=== PATIENT | male | born 1955 | race Caucasian/White ===

== ENCOUNTER 2019-10-03 08:08 | Inpatient (IN) | payer OTHER ==
[2019-10-01 11:29] LABS: BASOPHILS # (AUTO) 0.1 X10'3 (0-0.2); BASOPHILS % (AUTO) 0.8 % (0-1); EOSINOPHILS # (AUTO) 0.5 X10'3 (0-0.9); EOSINOPHILS % (AUTO) 4.3 % (0-6); LYMPHOCYTES # (AUTO) 1.6 X10'3 (1.1-4.8); LYMPHOCYTES % (AUTO) 14.4 % (21-51); MEAN CORPUSCULAR HEMOGLOBIN 31.8 PG (27.0-31.0); MEAN CORPUSCULAR VOLUME 93.4 FL (78-98); MEAN PLATELET VOLUME 8.1 FL (7.4-10.4); MONOCYTES # (AUTO) 0.8 X10'3 (0-0.9); MONOCYTES % (AUTO) 7.4 % (2-12); NEUTROPHILS # (AUTO) 8.1 X10'3 (1.8-7.7); NEUTROPHILS % (AUTO) 73.1 % (42-75); PRE OP HEMATOCRIT 46.6 % (42.0-52.0); PRE OP HEMOGLOBIN 15.9 g/dL (14.0-17.9); PRE OP PLATELET COUNT 330 X10'3 (140-440); RED BLOOD COUNT 4.99 X10'6 (4.70-6.10); RED CELL DISTRIBUTION WIDTH 13.6 % (11.5-14.5)
[2019-10-01 11:33] LABS: CLARITY,URINE SLIGHTLY CLOUDY (Clear); COLOR,URINE YELLOW (Yellow); GLUCOSE, URINE NEGATIVE (Neg); KETONES,URINE NEGATIVE (Neg); LEUKOCYTE ESTERASE ,URINE TRACE (Neg); NITRITES, URINE NEGATIVE (Neg); OCCULT BLOOD,URINE MODERATE (Neg); PROTEIN,URINE NEGATIVE (Neg); UROBILINOGEN,URINE 0.2 E.U/dL (0.2-1.0)
[2019-10-01 11:39] LABS: UA COLLECTION TYPE CLN CATCH MIDSTREAM
[2019-10-01 11:40] LABS: MUCUS STRANDS MANY /LPF (Neg); SQUAMOUS EPITHELIAL CELL,UR FEW /LPF (FEW); TRANSITIONAL EPI CELLS,URINE FEW /HPF
[2019-10-01 11:41] LABS: BACTERIA,URINE NONE SEEN /HPF (Neg); RENAL CELLS, URINE FEW /HPF; WBC,URINE 0-4 /HPF (0-4)
[2019-10-01 11:45] LABS: PRE OP INR 0.9 INR
[2019-10-01 11:50] LABS: ALBUMIN 3.8 G/DL (3.4-5.0); ALBUMIN/GLOBULIN RATIO 0.9 (1.1-1.5); ALKALINE PHOSPHATASE 94 IU/L (46-116); BLOOD UREA NITROGEN 10 MG/DL (7-18); BUN/CREATININE RATIO 14.3 (5.4-32.0); CALCIUM 9.3 MG/DL (8.5-10.1); CHLORIDE 104 MMOL/L (99-107); PRE OP ALT 39 U/L (30-65); PRE OP ANION GAP 13 (8-16); PRE OP AST 26 U/L (10-37); PRE OP BILIRUB, TOTAL 0.7 MG/DL (0.0-1.0); PRE OP GLUCOSE 95 MG/DL (70-104); PRE OP POTASSIUM 4.2 MMOL/L (3.4-5.1); PRE OP SODIUM 139 MMOL/L (135-145); TOTAL CARBON DIOXIDE 22.2 MMOL/L (24-32); TOTAL PROTEIN 8.2 G/DL (6.4-8.2); eGFR > 90 ML/MIN
[~2019-10-03] VITALS: Ht 172.7 cm; Wt 78.4 kg
[2019-10-03] VITALS (21 sets, daily range): BP systolic 95–170; BP diastolic 53–86
[~2019-10-03 08:08] MED LIST: ASPI-12 PO; FLO0.4C PO; LISI-604 PO; albuterol 2.5 MG/3 ML nebule NEB ONE; cefazolin/dext.iso 2gm/50ml 50 ML IV ONE; famotidine 20mg tablet PO ONE; nitroPRUSSIDE in NS 100 ML IV PRN; phenylephrine inj 20 MG in normal saline 250ml IV soln 250 ML IV PRN; ringers solution, lacted 1,000 ML IV ONE
--- NOTE | 2019-10-03 11:00 | NUR ---
PT FRUSTRATED THAT HE HAS NOT BEEN ABLE TO EAT. I EXPLAINED TO PT THAT IF HE ATE HE WOULD NOT BE ABLE TO HAVE SURGERY TODAY. HE STATED THAT IS WHAT HE WANTED "FOOD OVER SURGERY". DR LUNA INTO SPEAK WITH PT AT LENGTH ABOUT NEED FOR SURGERY AND RISKS OF CX SURGERY TODAY PT VERY ADAMANT ABOUT NOT WANTING SURGERY AND WANTING TO EAT. DR. LUNA SAID WE WOULD RESPECT HIS WISHES AND LET HIM GO HOME. FOOD ORDERED FROM [employer] FOR PT WELL. FRIEND CALLED FOR RIDE HOME.
--- NOTE | 2019-10-03 11:15 | NUR ---
IV DC'D FOR DC HOME. PT NOW FEELING REMORSEFUL ABOUT CX SURGERY AND WANTS TO KNOW IF HE CAN STILL HAVE IT TODAY. CALLED OR CHARGE NURSE. SURGERY BACK ON. PT AND FRIEND INFORMED
[2019-10-03] MEDS ORDERED: ceFAZolin 1000mg inj ONE (11:39)
[2019-10-03] MEDS ORDERED: heparin 10,000 units/1 ML INJ ONE (11:39)
--- NOTE | 2019-10-03 11:50 | NUR ---
IV RESTARTED. CARTON STAMPER HERE TO PLACE LEADS
[2019-10-03] MEDS ORDERED: LIDOcaine 1% (10mg/ml) 2ml vial ONE (12:15)
[2019-10-03] MEDS ORDERED: midazolam 2 mg/2 ml injection ONE ×2 (12:35→12:56)
[2019-10-03] MEDS ORDERED: fentaNYL /PF 50mcg/ml 5ml ampule ONE (12:57)
[2019-10-03] MEDS ORDERED: propofol inj 20 ML IV ONE (13:00)
[2019-10-03] MEDS ORDERED: ringers solution, lacted 1,000 ML IV SCH (13:51)
[2019-10-03] MEDS ORDERED: ondansetron/PF 4mg/2ml inj IV PRN ×3 (13:55→15:20)
[2019-10-03] MEDS ORDERED: meperidine/PF 25mg/ml syringe IV PRN ×3 (13:55)
[2019-10-03] MEDS ORDERED: morphine 4 MG/ML inj SYRINge IV PRN ×2 (13:55)
[2019-10-03] MEDS ORDERED: proCHLORperazine 10 MG/2 ml inj IV PRN (13:55)
[2019-10-03] MEDS ORDERED: rocuronium 10mg/ml inj IV ONE (14:09)
[2019-10-03] MEDS ORDERED: neostigmine methylsulfate 1 MG/ML 10ml vial ONE (14:09)
[2019-10-03] MEDS ORDERED: heparin 1,000unit/ml 10ml vial 10 ML ONE (14:09)
[2019-10-03] MEDS ORDERED: glycopyrrolate 0.2mg/ml inj ONE (14:09)
[2019-10-03] MEDS ORDERED: metoprolol tartrate 1mg/ml inj IV ONE (14:09)
--- NOTE | 2019-10-03 14:21 | NUR ---
Received from OR via BED, accompanied by Anesthesiologist DR HOLDEN and report given by Anesthesiologist. PT DROWSY, DENIES PAIN, LEFT NECK W/JESUS TO BULB SUCTION W/S/S STEVE PIERRE COVERING INCISION CDI, NO SWELLING NOTED. Addendum: 10/03/19 at 1456 by Frances Oconnor RN Amended: Links added.
[2019-10-03] MEDS ORDERED: HYDROmorphone inj. 0.5 MG/0.5 ML DISP.SYRIN IV PRN (15:20)
--- NOTE | 2019-10-03 15:41 | NUR ---
Report called to receiving nurse. Transferred via BED ON , 2 BAGS OF Belongings, 1 DUFFLE BAG AND 1 CANE SENT W/PT TO ROOM 2045, RECEIVING RN AT BEDSIDE TO RECEIVE PT. PT REMAINS NON-COMPLIANT W/CARE. Special Issues communicated to receiving nurse. YES. Addendum: 10/03/19 at 1553 by Frances Oconnor RN Amended: Links added.
[2019-10-03] MEDS ORDERED: phenylephrine inj 20 MG in normal saline 250ml IV soln 250 ML IV PRN (15:55)
--- NOTE | 2019-10-03 18:30 | NUR ---
Patient in room ICU 2045. I have received report from Rose GASTON, and had the opportunity to ask questions and assume patient care.
[2019-10-03] MEDS: HYDROcodone/acetaminophen 10/325mg tab PO PRN ×2 (18:50→23:47)
--- NOTE | 2019-10-03 20:15 | NUR ---
PT sitting up in bed with no s/s of distress noted at this time. PT on RA and tolerating well, O2 sat >94%. A-Line to RT radial, zeroed and transduced to pressure tubing. JESUS to LT neck with minimal serous output noted in bulb or tubing. Drsg to LT neck is CDI. PT has been grumpy, extremely argumentative and has complained constantly despite every effort and attempt by nursing to provide every request by PT. PT dinner tray did not come up at "normal" time, multiple calls with no answer and Fax sent. PT offered a snack until his tray arrived and after given all of the options PT requested an applesauce which was provided. Dietary brought up dinner tray shortly after 1999, [place], bag of chips, fruit, salad, slice of cake and can of Sprite were provided, PT still complained because it was not a "Hot meal", PT consumed 50% of meal. Pain meds were given at beginning of shift and have been effective thus far. PT c/o being cold, thermostat turned all the way up in and multiple warm blankets have been provided, PT keeps removing blankets despite his complains of being cold. PT still c/o being cold so door was slid closed, cracked so that nursing can still hear alarms, in attempts to keep heat in the room. PT educated on bedside monitor and reason for monitoring. Bed is locked and low. Call light is within reach. Will continue to monitor.
--- NOTE | 2019-10-03 22:19 | NUR ---
PT is sleeping with no s/s of distress noted at this time. Jaspal Jaquez rounded, updated him on PT condition, PT is on 10mcg of Norsynephrine. Verbal order received to D/C A-line anytime. Bed is locked and low. Call light is within reach. Will continue to monitor.
[2019-10-04] VITALS (11 sets, daily range): BP systolic 101–149; BP diastolic 55–86
--- NOTE | 2019-10-04 03:00 | NUR ---
PT sleeping with no s/s of distress noted at this time. VSS. Bed is locked and low. Call light is within reach. Will continue to monitor.
--- NOTE | 2019-10-04 06:49 | NUR ---
Problems reprioritized. Patient report given, questions answered & plan of care reviewed with Aubree GASTON.
[2019-10-04] MEDS: HYDROcodone/acetaminophen 10/325mg tab PO PRN (09:00)
--- NOTE | 2019-10-04 09:00 | NUR ---
pt awake, angry- wants clothes to go home. reassured or attempted to pt. dr anton office called x 3- r/t dc of giuliana- which was ordered and done. then pt wanting pain med for home, but unsure the name of the rx-. then did not haver the money, nor did he have a ride. pt attempting oob- stated he would walk. pt able to have sister come- she is here. oswaldo and giuliana dcd. left neck with bruisinf, some edema, but soft. dc instructions to pt and reinforced about swelling of neck if he had trouble swallowing, other than sore throat. neuros intact. 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
--- NOTE | 2019-10-04 10:00 | NUR ---
sister will pay for rx and several calls to rx- mds officenotified to efax to them- [facility] janette
--- NOTE | 2019-10-04 10:45 | NUR ---
dcd per wc- after repeated attempts to leave b4 info on rx and dc instructions. epi dcd at 0700- sbp same at 114 to 120.
== END 2019-10-04 10:46 | disposition home or self-care (01) | DRG 38 ==
LOC: PAS IN 08:08 → EDSTATUS 11:45 → ICU 2S 13:51 → EDSTATUS 14:00
PROVIDERS: ADMIT Surgery; ATTEND Surgery
PROC: 03CL0ZZ Extirpation of Matter from Left Internal Carotid Artery, Open Approach (ICD-10-PCS; 2019-10-03)
PROC: 03CN0ZZ Extirpation of Matter from Left External Carotid Artery, Open Approach (ICD-10-PCS; 2019-10-03)
PROC: 03CJ0ZZ Extirpation of Matter from Left Common Carotid Artery, Open Approach (ICD-10-PCS; principal; 2019-10-03 12:49)
DX: I65.22 Occlusion and stenosis of left carotid artery (principal); I69.354 Hemiplegia and hemiparesis following cerebral infarction affecting left non-dominant side; J41.0 Simple chronic bronchitis; I10 Essential (primary) hypertension; F17.210 Nicotine dependence, cigarettes, uncomplicated
CPT/HCPCS: 36415; 71046; 80053; 81001; 82948; 85025; 85610; 85730; 86885; 86900; 86901; 87081; 87088; 93005; 94640; 94760; 95813; 95816; A4618; A6258; A7000; G0378; J0690; J1644; J2001; J2175; J2250; J2370; J2704; J2710; J3010; J3490; J7040; J7050; J7120